=== PATIENT | male | born 1940 | race Caucasian/White ===

== ENCOUNTER 2018-10-21 17:27 | Emergency (ER) | payer OTHER ==
[~2018-10-21] VITALS: Ht 165.1 cm; Wt 77.1 kg
[2018-10-21] MEDS ORDERED: FORTAMET500 MG (17:49)
== END 2018-10-21 20:41 | disposition home or self-care (01) ==
LOC: ER 17:27
DX: E11.65 Type 2 diabetes mellitus with hyperglycemia (principal)

== ENCOUNTER 2020-12-22 16:06 | Emergency (ER) | payer OTHER ==
[~2020-12-22] VITALS: Ht 165.1 cm; Wt 76.7 kg
[~2020-12-22 16:06] MED LIST: FORTAMET500 MG
[2020-12-22] MEDS ORDERED: SEMGLEE100 UNIT/1 SUBCUTANEO (17:11)
[2020-12-22] MEDS ORDERED: LISINOPRIL-HCT1 EAC1 PO (17:11)
[2020-12-22] MEDS ORDERED: CLONIDINE HCL0.1 MG PO (17:12)
[2020-12-22] MEDS ORDERED: CARVEDILOL25 M1 PO (17:12)
[2020-12-22] MEDS ORDERED: CLOPIDOGREL BIS75 MG PO (17:12)
[2020-12-22] MEDS ORDERED: AMLODIPINE BESYL5 MG PO (17:12)
[2020-12-22] MEDS ORDERED: OMEGA-3 ACID ETH1 GM PO (17:12)
[2020-12-22] MEDS ORDERED: TORSEMIDE5 MG PO (17:13)
[2020-12-22] MEDS ORDERED: ST. JOSEPH ASPI81 M2 PO (17:13)
[2020-12-23] MEDS ORDERED: MECLIZINE HCL25 MG PO (04:24)
== END 2020-12-23 04:32 | disposition home or self-care (01) ==
LOC: ER 16:06 → EMR PED 16:06 → ER 20:08
DX: E11.65 Type 2 diabetes mellitus with hyperglycemia (principal); E86.0 Dehydration; E87.8 Other disorders of electrolyte and fluid balance, not elsewhere classified; R42 Dizziness and giddiness; Z79.4 Long term (current) use of insulin

== ENCOUNTER 2021-02-27 18:07 | Emergency (ER) | payer OTHER ==
[~2021-02-27] VITALS: Ht 165.1 cm; Wt 73.9 kg
[~2021-02-27 18:07] MED LIST changes: +AMLODIPINE BESYL5 MG PO; +CARVEDILOL25 M1 PO; +CLONIDINE HCL0.1 MG PO; +CLOPIDOGREL BIS75 MG PO; +LISINOPRIL-HCT1 EAC1 PO; +MECLIZINE HCL25 MG PO; +OMEGA-3 ACID ETH1 GM PO; +SEMGLEE100 UNIT/1 SUBCUTANEO; +ST. JOSEPH ASPI81 M2 PO; +TORSEMIDE5 MG PO
[2021-02-27] MEDS ORDERED: CARDURA XL4 MG PO (18:36)
[2021-02-27] MEDS ORDERED: LANTUS SOL100 UNIT/1 SQ (18:37)
[2021-02-27] MEDS ORDERED: PLAVIX75 MG PO (18:38)
== END 2021-02-27 22:28 | disposition home or self-care (01) ==
LOC: ER 18:07
DX: T78.3XXA Angioneurotic edema, initial encounter (principal); R42 Dizziness and giddiness